=== PATIENT | male | born 1950 | race Caucasian/White ===

== ENCOUNTER 2017-11-10 13:25 | Emergency (ER) | payer OTHER ==
[~2017-11-10] VITALS: Ht 172.7 cm; Wt 120.0 kg
[2017-11-10 13:30] VITALS: BP 185/111; PULSE 73; RESP 16; TEMP 98.6; O2SAT 96
--- NOTE | 2017-11-10 15:19 | PD ---
HPI Chief Complaint: Hypertension Time Seen by Provider: 15:03 Travel History International Travel<30 days: No Contact w/Intl Traveler<30days: No Traveled to known affect area: No History of Present Illness HPI 67-year-old male presents with elevated blood pressure reading at his first visit at the [place] today. He states that he is asymptomatic. He states they sent him here. He states that he takes 3 blood pressure medications and took them today. He states they are hctz, triamterene and losartan. He states he does not know the doses. He states that his blood pressure was significantly elevated and he does not know the numbers. He states he lives out near [place] but cannot get an appointment out there. [facility] Past Medical History Hypertension: Yes Past Surgical History Other Surgery: Yes (Adrenal surgery) Social History Tobacco Use: No Allergies-Medications (Allergen,Severity, Reaction): Coded Allergies: No Known Allergies (Unverified , 11/10/17) Review of Systems Except as stated in HPI: all other systems reviewed are Neg Physical Exam Narrative GENERAL: 67-year-old male in no apparent distress SKIN: Focused skin assessment warm/dry. HEAD: Atraumatic. Normocephalic. EYES: Pupils equal and round. No scleral icterus. No injection or drainage. ENT: No nasal bleeding or discharge. Mucous membranes pink and moist. NECK: Trachea midline. No JVD. CARDIOVASCULAR: Regular rate and rhythm. No murmur appreciated. RESPIRATORY: No accessory muscle use. Clear to auscultation. Breath sounds equal bilaterally. GASTROINTESTINAL: Abdomen soft, non-tender, nondistended. Hepatic and splenic margins not palpable. MUSCULOSKELETAL: No obvious deformities. No clubbing. No cyanosis. No edema. NEUROLOGICAL: Awake and alert. No obvious cranial nerve deficits. Motor grossly within normal limits. Normal speech. 5 out of 5 in all 4 extremities, equal grasp bilaterally PSYCHIATRIC: Appropriate mood and affect; insight and judgment normal. Data Data Last Documented VS Vital Signs Date Time Temp Pulse Resp B/P (MAP) Pulse Ox O2 Delivery O2 Flow Rate FiO2 11/10/17 16:29 68 18 176/97 (123) 97 Room Air 11/10/17 13:30 98.6 Orders Orders Complete Blood Count With Diff (11/10/17 15:12) Basic Metabolic Panel (Bmp) (11/10/17 15:12) Iv Access Insert/Monitor (11/10/17 15:12) Ecg Monitoring (11/10/17 15:12) Oximetry (11/10/17 15:12) Enalaprilat Inj (Vasotec Inj) (11/10/17 15:30) Ed Discharge Order (11/10/17 16:48) Labs Laboratory Tests Test 11/10/17 15:40 White Blood Count 8.4 TH/MM3 Red Blood Count 4.96 MIL/MM3 Hemoglobin 15.4 GM/DL Hematocrit 43.0 % Mean Corpuscular Volume 86.7 FL Mean Corpuscular Hemoglobin 31.1 PG Mean Corpuscular Hemoglobin Concent 35.9 % Red Cell Distribution Width 14.3 % Platelet Count 152 TH/MM3 Mean Platelet Volume 9.0 FL Neutrophils (%) (Auto) 63.3 % Lymphocytes (%) (Auto) 25.8 % Monocytes (%) (Auto) 7.9 % Eosinophils (%) (Auto) 2.7 % Basophils (%) (Auto) 0.3 % Neutrophils # (Auto) 5.3 TH/MM3 Lymphocytes # (Auto) 2.2 TH/MM3 Monocytes # (Auto) 0.7 TH/MM3 Eosinophils # (Auto) 0.2 TH/MM3 Basophils # (Auto) 0.0 TH/MM3 CBC Comment DIFF FINAL Differential Comment Blood Urea Nitrogen 13 MG/DL Creatinine 1.32 MG/DL Random Glucose 92 MG/DL Calcium Level 9.2 MG/DL Sodium Level 143 MEQ/L Potassium Level 3.5 MEQ/L Chloride Level 108 MEQ/L Carbon Dioxide Level 27.3 MEQ/L Anion Gap 8 MEQ/L Estimat Glomerular Filtration Rate 54 ML/MIN [facility] Medical Decision Making Medical Screen Exam Complete: Yes Emergency Medical Condition: Yes Medical Record Reviewed: Yes (Past history confirmed) Interpretation(s) CBC & BMP Diagram 11/10/17 15:40 Calcium Level 9.2 Differential Diagnosis Hypertensive urgency, renal failure, electrolyte abnormality Narrative Course Will check basic blood work and recheck blood pressure. He will likely need his medications adjusted through his primary care physician. Patient is currently asymptomatic. Blood pressure has improved with small dose of Vasotec. Patient is asymptomatic. He can discuss further blood pressure medication adjustment with his primary care physician. His creatinine is 1.3 here without prior for comparison and no associated hyperkalemia this can also be followed outpatient. Patient denies any new complaints and states that they are feeling better. Patient happy with care, all questions answered. Patient knows that follow up is incumbent on them and to return to the emergency room immediately if new or worsening symptoms develop. Patient given strict return precautions, vitals reviewed and are normal, agrees to further workup as an outpatient. Diagnosis Primary Impression: Asymptomatic hypertensive urgency Patient Instructions: General Instructions Additional Instructions: keep blood pressure log, return as needed, follow with primary in next 1-2 days Med/Other Pt SpecificInfo: No Change to Meds Disposition: 01 DISCHARGE HOME Condition: Stable Jael Solitario MD Nov 10, 2017 15:18
[2017-11-10] MEDS ORDERED: ENALAPRILAT 1.25 MG/ML VIAL IV PUSH ONE (15:30)
[2017-11-10 16:09] LABS: AUTOMATED NEUTROPHIL # 5.3 TH/MM3 (1.8-7.7); BASOPHIL % 0.3 % (0.0-2.0); EOSINOPHIL # 0.2 TH/MM3 (0-0.4); EOSINOPHIL % 2.7 % (0.0-4.0); HEMOGLOBIN 15.4 GM/DL (13.0-17.0); LYMPH % 25.8 % (9.0-44.0); LYMPHOCYTE # 2.2 TH/MM3 (1.0-4.8); MEAN CELL VOLUME 86.7 FL (80.0-100.0); MEAN CORPUSCULAR HEMOGLOBIN 31.1 PG (27.0-34.0); MEAN CORPUSCULAR HGB CONC 35.9 % (32.0-36.0); MONO % 7.9 % (0.0-8.0); MONOCYTE # 0.7 TH/MM3 (0-0.9); NEUT % 63.3 % (16.0-70.0); PLATELET COUNT 152 TH/MM3 (150-450); RED BLOOD COUNT 4.96 MIL/MM3 (4.50-5.90); RED CELL DISTRIBUTION WIDTH 14.3 % (11.6-17.2); WHITE BLOOD COUNT 8.4 TH/MM3 (4.0-11.0)
[2017-11-10 16:20] VITALS: O2SAT 98
[2017-11-10 16:29] VITALS: BP 176/97; PULSE 68; RESP 18; O2SAT 97
[2017-11-10 16:42] LABS: BICARBONATE 27.3 MEQ/L (21.0-32.0); CALCIUM 9.2 MG/DL (8.5-10.1); CREATININE 1.32 MG/DL (0.60-1.30)
[2017-11-10] MEDS ORDERED: TRIA1CAP PO (17:41)
[2017-11-10] MEDS ORDERED: BUPR150CR PO (17:41)
[2017-11-10] MEDS ORDERED: PROS5TAB PO (17:41)
[2017-11-10] MEDS ORDERED: LOSA25TA PO (17:41)
[2017-11-10] MEDS ORDERED: LISI10TA3 PO (17:41)
[2017-11-10 17:44] VITALS: BP 171/72
== END 2017-11-10 17:50 | disposition home or self-care (01) ==
LOC: NEPE 13:25
DX: I16.0 Hypertensive urgency (principal)
CPT/HCPCS: 80048; 85025; 96374